=== PATIENT | male | born 1975 | race Caucasian/White ===

== ENCOUNTER 2019-03-18 16:43 | Emergency (ER) | payer OTHER ==
[~2019-03-18] VITALS: Ht 182.9 cm; Wt 84.8 kg
[2019-03-18 16:58] VITALS: BP 140/108; Ht 182.9 cm; Wt 84.8 kg
== END 2019-03-18 19:00 | disposition home or self-care (01) ==
LOC: ED 16:43
DX: S92.522A Displaced fracture of middle phalanx of left lesser toe(s), initial encounter for closed fracture (principal); W04.XXXA Fall while being carried or supported by other persons, initial encounter; Y93.89 Activity, other specified; Y92.89 Other specified places as the place of occurrence of the external cause; Y99.8 Other external cause status